=== PATIENT | male | born 1980 | race Caucasian/White ===

== ENCOUNTER 2017-11-02 19:21 | Inpatient (IN) | payer MEDICARE, BC ==
[~2017-11-02] VITALS: Ht 170.2 cm; Wt 76.0 kg
[2017-11-02] MEDS ORDERED: ACETAMINOPHEN 650 mg PER 20 mL UD PO ONE (19:45)
[2017-11-02] MEDS ORDERED: ACETAMINOPHEN 325 MG TAB PO ONE (19:45)
[2017-11-02 22:25] LABS: Basophils # (auto) 0 uL; Basophils % (auto) 0.9 % (0.0-2.0); Eosinophils # (auto) 0.1 uL; Eosinophils % (auto) 1.4 % (0.0-7.0); Hematocrit 26.8 % (41.0-53.0); Hemoglobin 9.6 g/dL (13.5-17.5); Lymphocytes # (auto) 0.3 uL; Lymphocytes % (auto) 7.2 % (10.0-50.0); Mean Corpuscular Hemoglobin 34.2 pg (28.0-32.0); Mean Corpuscular Volume 95.1 fL (80.0-100.0); Monocytes # (auto) 0.1 uL; Monocytes % (auto) 2.1 % (0.0-12.0); Neutrophils # (auto) 3.9 uL; Neutrophils % (auto) 88.4 % (37.0-80.0); Nucleated Red Blood Cells % 0.1 %; Red Blood Cells 2.82 10^6/uL (4.5-5.90); Red Cell Distribution Width 14.9 % (11.8-14.3); White Blood Cell 4.4 10^3/uL (4.4-10.8)
[2017-11-02 22:28] LABS: Platelet Count (auto) 96 10^3/uL (140-450)
[2017-11-02 22:39] LABS: Albumin 3.3 g/dL (3.4-5.0); Calcium 8.9 mg/dL (8.5-10.1); Potassium 3.5 mmol/L (3.5-5.1)
[2017-11-02 22:41] LABS: BUN/Creatinine Ratio 3.4; Prothrombin Time 10.7 sec (9.27-12.13)
[2017-11-02 22:46] LABS: Bilirubin, Total 0.4 mg/dL (0.2-1.0); Total Protein 5.7 g/dL (6.4-8.2)
[2017-11-03] VITALS (43 sets, daily range): BP systolic 65–123; BP diastolic 27–66
[2017-11-03] MEDS ORDERED: ONDANSETRON HCL 4 MG/2 ML VIAL IV PRN (00:45)
[2017-11-03] MEDS ORDERED: TEMAZEPAM 15 MG CAP PO PRN (00:45)
[2017-11-03] MEDS ORDERED: HYDROcodone-ACET 5/325MG TAB PO PRN (00:45)
[2017-11-03] MEDS ORDERED: SODIUM CHLORIDE 0.9% 1,000 ML IV ONE (00:45)
[2017-11-03] MEDS ORDERED: SODIUM CHLORIDE 0.9% 250 ML IV ONE (01:00)
[2017-11-03] MEDS ORDERED: NOREPINEPHRINE 8 MG/250ML KIT 250 ML IV ONE (03:35)
[2017-11-03] MEDS: NOREPINEPHRINE 8 MG/250ML KIT 250 ML IV SCH (03:47)
[2017-11-03 06:59] LABS: Basophils # (auto) 0.1 uL; Basophils % (auto) 0.5 % (0.0-2.0); Eosinophils # (auto) 0.1 uL; Eosinophils % (auto) 0.5 % (0.0-7.0); Lymphocytes # (auto) 0.5 uL; Lymphocytes % (auto) 4.2 % (10.0-50.0); Mean Corpuscular Hemoglobin 33.3 pg (28.0-32.0); Mean Corpuscular Hgb Conc. 34.7 g/dL (32.0-36.0); Mean Corpuscular Volume 96.1 fL (80.0-100.0); Monocytes # (auto) 0.8 uL; Monocytes % (auto) 6.2 % (0.0-12.0); Neutrophils # (auto) 11.1 uL; Neutrophils % (auto) 88.6 % (37.0-80.0); Platelet Count (auto) 111 10^3/uL (140-450); Red Blood Cells 3.02 10^6/uL (4.5-5.90); Red Cell Distribution Width 15.1 % (11.8-14.3); White Blood Cell 12.5 10^3/uL (4.4-10.8)
[2017-11-03 07:21] LABS: BUN/Creatinine Ratio 3.2; Calcium 8.9 mg/dL (8.5-10.1); Potassium 5.2 mmol/L (3.5-5.1)
[2017-11-03] MEDS ORDERED: SEVELAMER 800 MG TAB PO SCH (08:00)
[2017-11-03] MEDS ORDERED: [UNRECOGNIZED DRUG - CODE] SC (08:14)
[2017-11-03] MEDS ORDERED: CINA30TA2 PO (08:14)
[2017-11-03] MEDS ORDERED: MONT5CHW17 PO (08:14)
[2017-11-03] MEDS ORDERED: DOXE1CAP4 PO (08:14)
[2017-11-03] MEDS ORDERED: ERGO1CAP23 PO (08:14)
[2017-11-03] MEDS ORDERED: B-CO1CAP6 PO (08:14)
[2017-11-03] MEDS ORDERED: SEVE800T10 PO (08:14)
[2017-11-03] MEDS ORDERED: GENTAMYCIN IV SCH (09:45)
[2017-11-03] MEDS ORDERED: ERGOCALCIFEROL 50000 UNIT PO SCH (09:45)
[2017-11-03] MEDS ORDERED: VANCOMYCIN PER PHARMACY 0 MG IV SCH ×2 (09:45)
[2017-11-03] MEDS ORDERED: B COMPLEX PO SCH (10:00)
[2017-11-03] MEDS ORDERED: [UNRECOGNIZED DRUG - OTHER] PO SCH (10:00)
[2017-11-03] MEDS ORDERED: FOLIC ACID PO SCH (10:00)
[2017-11-03] MEDS: CINACALCET HYDROCHLORIDE 30 MG TAB PO SCH (10:00)
[2017-11-03] MEDS ORDERED: PATIENTS OWN MEDICATION (Montelukast Sodium (Singulair) 10 MG) PO SCH (10:00)
[2017-11-03] MEDS: DOXERCALCIFEROL 1 MCG PO SCH (10:00)
[2017-11-03] MEDS: B-COMPLEX W/ C & FOLIC ACID(NEPHROVITE TAB) PO SCH (10:00)
[2017-11-03] MEDS ORDERED: GENTAMICIN SULFATE 120 MG in D5W 5% 100 ML IV SCH (10:15)
[2017-11-03] MEDS ORDERED: GENTAMICIN PER PHARMACY 0 ML IV SCH (10:15)
[2017-11-03] MEDS ORDERED: VANCOMYCIN 1GM/250ML 250 ML IV ONE (11:00)
[2017-11-03] MEDS ORDERED: GENTAMICIN SULFATE 160 MG in D5W 5% 100 ML IV ONE (11:00)
[2017-11-03] MEDS: MONTELUKAST SODIUM 10 MG TAB PO SCH (11:55)
[2017-11-03] MEDS: ACETAMINOPHEN 325 MG TAB PO PRN ×2 (11:55→20:26)
[2017-11-03] MEDS: SEVELAMER 800 MG TAB PO SCH ×2 (12:00→18:00)
[2017-11-03] MEDS ORDERED: SEVELAMER CARBONATE PO SCH (14:00)
[2017-11-04] VITALS (54 sets, daily range): BP systolic 84–117; BP diastolic 40–70
[2017-11-04] MEDS: NOREPINEPHRINE 8 MG/250ML KIT 250 ML IV SCH (03:30)
[2017-11-04] MEDS: ACETAMINOPHEN 325 MG TAB PO PRN (04:05)
[2017-11-04 05:06] LABS: Basophils # (auto) 0 uL; Basophils % (auto) 0.9 % (0.0-2.0); Eosinophils # (auto) 0.1 uL; Eosinophils % (auto) 1.9 % (0.0-7.0); Hematocrit 25.1 % (41.0-53.0); Hemoglobin 8.8 g/dL (13.5-17.5); Lymphocytes # (auto) 0.6 uL; Lymphocytes % (auto) 11.4 % (10.0-50.0); Mean Corpuscular Hemoglobin 33.2 pg (28.0-32.0); Mean Corpuscular Hgb Conc. 34.9 g/dL (32.0-36.0); Mean Corpuscular Volume 95.2 fL (80.0-100.0); Monocytes # (auto) 0.3 uL; Monocytes % (auto) 6.1 % (0.0-12.0); Neutrophils # (auto) 4.1 uL; Neutrophils % (auto) 79.7 % (37.0-80.0); Platelet Count (auto) 79 10^3/uL (140-450); Red Blood Cells 2.64 10^6/uL (4.5-5.90); Red Cell Distribution Width 14.9 % (11.8-14.3); White Blood Cell 5.1 10^3/uL (4.4-10.8)
[2017-11-04 05:35] LABS: BUN/Creatinine Ratio 3.5; Calcium 9.5 mg/dL (8.5-10.1); Potassium 4.6 mmol/L (3.5-5.1)
[2017-11-04] MEDS: SEVELAMER 800 MG TAB PO SCH ×3 (09:38→18:24)
[2017-11-04] MEDS: B-COMPLEX W/ C & FOLIC ACID(NEPHROVITE TAB) PO SCH (09:38)
[2017-11-04] MEDS: CINACALCET HYDROCHLORIDE 30 MG TAB PO SCH (09:39)
[2017-11-04] MEDS: MONTELUKAST SODIUM 10 MG TAB PO SCH (09:39)
[2017-11-04] MEDS ORDERED: [UNRECOGNIZED DRUG - REMARK] SC SCH (11:00)
[2017-11-04] MEDS: DOXERCALCIFEROL 1 MCG PO SCH (11:05)
[2017-11-05] VITALS (22 sets, daily range): BP systolic 92–113; BP diastolic 53–75
[2017-11-05] MEDS: NOREPINEPHRINE 8 MG/250ML KIT 250 ML IV SCH (03:30)
[2017-11-05 04:28] LABS: BUN/Creatinine Ratio 4.2; Calcium 8.9 mg/dL (8.5-10.1); Potassium 4.1 mmol/L (3.5-5.1)
[2017-11-05 04:37] LABS: Bilirubin, Total 0.5 mg/dL (0.2-1.0); Total Protein 5.7 g/dL (6.4-8.2)
[2017-11-05] MEDS: SEVELAMER 800 MG TAB PO SCH ×4 (09:29→18:34)
[2017-11-05] MEDS: MONTELUKAST SODIUM 10 MG TAB PO SCH (09:30)
[2017-11-05] MEDS: DOXERCALCIFEROL 1 MCG PO SCH (09:31)
[2017-11-05] MEDS: B-COMPLEX W/ C & FOLIC ACID(NEPHROVITE TAB) PO SCH (09:31)
[2017-11-05] MEDS: CINACALCET HYDROCHLORIDE 30 MG TAB PO SCH (09:31)
[2017-11-05] MEDS ORDERED: ERGOCALCIFEROL 50,000 UNIT(1.25MG) CAP PO SCH (10:00)
[2017-11-05] MEDS ORDERED: SODIUM CHL 0.9% 1000 ML BAG XX ONE (10:15)
[2017-11-06] MEDS: NOREPINEPHRINE 8 MG/250ML KIT 250 ML IV SCH (03:30)
[2017-11-06 05:14] VITALS: BP 99/58
[2017-11-06 07:33] LABS: BUN/Creatinine Ratio 3.2; Bilirubin, Total 0.6 mg/dL (0.2-1.0); Calcium 8.6 mg/dL (8.5-10.1); Potassium 4.1 mmol/L (3.5-5.1); Total Protein 5.5 g/dL (6.4-8.2)
[2017-11-06 08:00] VITALS: BP 97/57
[2017-11-06] MEDS: SEVELAMER 800 MG TAB PO SCH (08:00)
[2017-11-06] MEDS: DOXERCALCIFEROL 1 MCG PO SCH (10:00)
[2017-11-06] MEDS: MONTELUKAST SODIUM 10 MG TAB PO SCH (10:00)
[2017-11-06] MEDS ORDERED: DARBEPOETIN ALFA 100 MCG SC SCH (10:00)
[2017-11-06] MEDS: B-COMPLEX W/ C & FOLIC ACID(NEPHROVITE TAB) PO SCH (10:00)
[2017-11-06 11:48] VITALS: BP 97/57
[2017-11-06 12:00] VITALS: BP 105/71
[2017-11-06] MEDS ORDERED: VANCOMYCIN 500 MG in D5W 5% 100 ML IV ONE (13:00)
[2017-11-07] MEDS ORDERED: SODIUM CHL 0.9% 1000 ML BAG XX ONE (11:30)
== END 2017-11-06 14:45 | disposition home or self-care (01) | DRG 871 ==
LOC: EDBD 19:21 → ER 19:26 → TELE 19:27 → ICU WEST 11-03 10:47 → TELE-CENTR 11-05 21:35
PROVIDERS: ADMIT Nurse Practitioner Family; ATTEND Family Medicine
PROC: 5A1D70Z Performance of Urinary Filtration, Intermittent, Less than 6 Hours Per Day (ICD-10-PCS; principal; 2017-11-05)
DX: A41.9 Sepsis, unspecified organism (principal); R65.21 Severe sepsis with septic shock; N18.6 End stage renal disease; Z94.0 Kidney transplant status; D63.1 Anemia in chronic kidney disease; D69.6 Thrombocytopenia, unspecified; I95.1 Orthostatic hypotension; J45.909 Unspecified asthma, uncomplicated; N05.9 Unspecified nephritic syndrome with unspecified morphologic changes; Z85.528 Personal history of other malignant neoplasm of kidney; Z87.448 Personal history of other diseases of urinary system; Z99.2 Dependence on renal dialysis; Z88.6 Allergy status to analgesic agent; Z88.8 Allergy status to other drugs, medicaments and biological substances; Z95.828 Presence of other vascular implants and grafts
CPT/HCPCS: 36415; 71045; 80048; 80053; 80170; 80202; 82306; 83970; 84100; 85025; 85610; 85730; 86022; 87040; 87081; 90935; 93005; 96361; 96365; 96367; A6257; J1642; J7060